=== PATIENT | male | born 1995 | race Caucasian/White ===

== ENCOUNTER 2022-10-24 20:16 | Emergency (ER) | payer OTHER, SELFPAY ==
--- NOTE | ~2022-10-24 | XR_ITS ---
EXAMINATION: XR SHOULDER, LEFT CLINICAL INFORMATION: Pain status post injury COMPARISON: None available. TECHNIQUE: Three views of the left shoulder. FINDINGS: No fracture or dislocation. The glenohumeral joint is well aligned. The acromioclavicular joint is intact. The visualized lung is clear. The visualized ribs are intact. XR/XR shoulder LT min 2V IMPRESSION: Normal left shoulder.
[2022-10-24 21:23] VITALS: BP 167/110; PULSE 93; TEMP 37; O2SAT 100; BMI 24.4
--- NOTE | 2022-10-24 22:16 | ED_ITS ---
HPI - Extremity Problem General Chief complaint: Extremity Injury, Upper Stated complaint: left shoulder injury Time Seen by Provider: 10/24/22 21:56 History of Present Illness HPI Narrative: Patient is a 27-year-old male had a baseball hitting him in the left shoulder near the distal collarbone. Patient complaining of pain localized to that area there is no neck pain. There is very little movement of the shoulder. Patient denies any head injury. No nausea no vomiting. Pain is localized. Related Data Previous Rx's Medication Instructions Recorded ibuprofen 400 mg tablet 400 mg PO Q6H PRN pain #20 tabs 10/24/22 Allergies Allergy/AdvReac Type Severity Reaction Status Date / Time No Known Allergies Allergy Verified 10/24/22 21:25 Review of Systems Review of Systems: Positive pain to the shoulder No chest pain no shortness of breath no diaphoresis Yes all other systems are reviewed and are negative [facility] Past Medical History Attestation statement: The following information was validated with the patient. Social History Social History Advance Directives: No Advance Directives Information Provided: No Physical Exam Vital Signs: Vital Signs: Last Vital Signs Temp 98.6 F 10/24/22 21:23 Pulse 93 10/24/22 21:23 BP 167/110 H 10/24/22 21:23 Pulse Ox 100 10/24/22 21:23 O2 Del Method Room Air 10/24/22 21:23 BMI result Body Mass Index 24.4 Appearance: Alert. Oriented X3. No acute distress. Eyes: Pupils equal, round and reactive to light. ENT: Pharynx normal. Neck: Normal inspection. Neck supple. No lymph nodes noted. No crepitus CVS: Normal heart rate and rhythm. Pulses normal. Normal S1 and S2 Respiratory: No respiratory distress. Breath sounds normal. No Wheezing. No rales Abdomen: Soft and nontender. No rigidity. No distention. good BS x4 Skin: Skin warm and dry. Normal skin color. Normal skin turgor. Extremities: Examination of the left shoulder showed sensation over the axillary median radial and ulnar nerves all intact. Pulse 2 +at radial movement of the fingers intact movement at the wrist at the elbow intact unable to move the shoulder well secondary to pain. No gross deformities noted Neuro: Oriented X 3. No motor deficit. No sensory deficit. Moving all extermities. No slurred speech Medical Decision Making Medical Decision Making MDM Narrative: X-ray of the shoulder showed no acute fracture. Patient is well appearing. Neurologically intact. Place patient on a sling. Will have patient follow-up with orthopedics on an outpatient basis. Motrin for pain. In stable condition. Differential Diagnosis Fracture dislocation sprain of the shoulder Lab Data [facility] Lab Attestation statement: I reviewed the patient's lab results. Independent Interpretation I performed an independent interpretation of an: Plain X-Ray Interpretation: No acute fracture noted on the shoulder x-ray. No dislocation Discharge Plan Discharge Clinical Impression: Contusion of left shoulder Patient Disposition: Home, Self-Care Instructions: Contusion in Adults (ED) Prescriptions: New ibuprofen 400 mg tablet 400 mg PO Q6H PRN (Reason: pain) Qty: 20 0RF Referrals: Kwame Kent MD [Physician] - 10/26/22
[2022-10-24] MEDS: Ibuprofen 400 MG TABLET PO (22:39)
== END 2022-10-24 22:40 | disposition home or self-care (01) ==
PROVIDERS: Emergency Provider Emergency Medicine Emergency Medical Services
DX: S40.012A Contusion of left shoulder, initial encounter (principal); W21.03XA Struck by baseball, initial encounter; Y93.64 Activity, baseball; Y92.320 Baseball field as the place of occurrence of the external cause; Y99.9 Unspecified external cause status
CPT/HCPCS: 73030; 99283